=== PATIENT | female | born 1970 | race Caucasian/White ===

== ENCOUNTER 2018-12-20 13:38 | Emergency (ER) | payer OTHER ==
[2018-12-20 13:47] VITALS: TEMP 98.5
[2018-12-20] MEDS ORDERED: MORPHINE SULFATE 4 MG/ML SYRINGE IM STA ×2 (14:09→17:33)
--- NOTE | 2018-12-20 14:11 | ED ---
General Adult HPI - General Chief complaint: Fall Stated complaint: Poss broken rt foot Source: patient, RN notes reviewed Mode of arrival: wheelchair Limitations: no limitations - History of Present Illness Initial comments: Patient is a 48-year-old female with history of torn ligaments in her left lower extremity who presents to the emergency department with a friend with complaint of right lower leg and ankle pain after a slip and fall on the ice an hour ago. She thinks that she broke her ankle. She states she has had morphine in the past without any reactions. Denies possibility of . Denies blood thinner use. Denies head injury, loss of consciousness, or additional injuries. Denies any additional past medical history. Denies medication use at home. Patient denies any recent fever, chills, shortness of breath, chest pain, back pain, neck pain, abdominal pain, nausea or vomiting, headaches or visual changes, or any other complaints. - Related Data Home Medications Medication Instructions Recorded Confirmed No Known Home Medications 12/20/18 12/20/18 Allergies Allergy/AdvReac Type Severity Reaction Status Date / Time Sulfa (Sulfonamide Allergy Unknown Verified 12/20/18 13:47 Antibiotics) Review of Systems ROS Statement: Those systems with pertinent positive or pertinent negative responses have been documented in the HPI. ROS Other: All systems not noted in ROS Statement are negative. Past Medical History Past Medical History: No Reported History History of Any Multi-Drug Resistant Organisms: None Reported Past Surgical History: No Surgical Hx Reported Past Psychological History: No Psychological Hx Reported Smoking Status: Never smoker Past Alcohol Use History: Occasional Past Drug Use History: None Reported General Exam Limitations: no limitations General appearance: alert, in no apparent distress Head exam: Present: atraumatic, normocephalic Eye exam: Present: normal appearance, PERRL, EOMI ENT exam: Present: normal oropharynx, TM's normal bilaterally, normal external ear exam Neck exam: Present: full ROM. Absent: tenderness Respiratory exam: Present: normal lung sounds bilaterally. Absent: wheezes, rales, rhonchi Cardiovascular Exam: Present: regular rate, normal rhythm Extremities exam: Present: normal capillary refill, other (Right ankle edematous and tender.) Neurological exam: Present: alert, oriented X3, CN II-XII intact Skin exam: Present: warm, dry Course Vital Signs 12/20/18 12/20/18 13:44 18:23 Temperature 98.5 F Pulse Rate 66 70 Respiratory 16 20 Rate Blood Pressure 145/81 134/71 O2 Sat by Pulse 100 100 Oximetry Procedures - Orthopedic Splinting/Casting Injury #1 Side: right Lower Extremity Injury Location: short leg, ankle Lower Extremity Immobilizer: posterior splint, stirrup splint Other Orthopedic Equipment: crutches (Prescription given.) Medical Decision Making - Medical Decision Making Patient given morphine for pain. Patient began to feel nauseous; ordered Zofran. Right DP pulse located by the nurse (please see nurse documentation). X-ray of the right tibia and fibula reveals displaced fracture involving the distal fibula. Mild diffuse osteopenia. Displaced fracture involving the medial malleolus with distortion of the ankle mortise. X-ray of the right ankle and foot reveals comminuted, displaced trimalleolar fracture at the right ankle with soft tissue swelling. Splints applied. Patient does not want a prescription for Tylenol; she is angry that she is not being offered a stronger pain medication. I offered that I could probably prescribe her a narcotic if that is what she wanted, but she said that she did not want it anymore and that she wanted to leave. Given a hand -written prescription for crutches. Will refer to orthopedics. Case discussed in detail with attending physician Dr. Aviles. Disposition Clinical Impression: Ankle fracture Disposition: HOME SELF-CARE Condition: Good Instructions (If sedation given, give patient instructions): Ankle Fracture (ED ) Additional Instructions: Follow-up with your primary care provider and orthopedics in 1-2 days. No weight bearing of the right leg (please use crutches). Return to the emergency department if your symptoms worsen or other concerns. Is patient prescribed a controlled substance at d/c from ED?: No Referrals: Nonstaff,Physician [Primary Care Provider] - 1-2 days Bernard Wing MD [STAFF PHYSICIAN] - 1-2 days
--- NOTE | 2018-12-20 15:07 | XR ---
EXAMINATION TYPE: XR tibia fibula RT DATE OF EXAM: 12/20/2018 COMPARISON: NONE HISTORY: Pain TECHNIQUE: Two views are submitted. FINDINGS: There is a displaced fracture involving the distal fibula. Mild diffuse osteopenia. There appears to be displaced fracture involving the medial malleolus with distortion of the ankle mortise. Metallic d ensity adjacent to the femur likely superficial to the patient which should be confirmed clinically. IMPRESSION: 1. There is at least a bimalleolar fracture of the ankle with distortion the ankle mortise. Lateral v iew does not include the distal margin of the posterior tibia correlate with ankle series.
--- NOTE | 2018-12-20 15:23 | XR ---
Right foot and right ankle HISTORY: Trauma and pain 3 views of the right foot and 3 views of the right ankle Bone mineralization is mildly reduced. There is a comminuted, displaced trimalleolar fracture at the right ankle. There is associated soft tissue swelling. IMPRESSION: Fractures as described.
[2018-12-20] MEDS ORDERED: ONDANSETRON ODT 4 MG TAB PO STA (17:46)
--- NOTE | 2018-12-20 17:55 | XR ---
EXAMINATION TYPE: XR ankle complete RT DATE OF EXAM: 12/20/2018 COMPARISON: Today HISTORY: Post reduction 3 views are obtained through the cast but show mildly displaced trimalleolar fracture of the right an kle. There is 5 mm lateral subluxation of the talus. There is widening of the ankle mortise. There is no dislocation. IMPRESSION: Mildly displaced trimalleolar fracture. No change in position compared to exam earlier to day. No dislocation.
[2018-12-20 18:30] VITALS: BP 134/71; PULSE 70; RESP 20
== END 2018-12-20 18:25 | disposition home or self-care (01) ==
LOC: EC 13:38
DX: S82.851A Displaced trimalleolar fracture of right lower leg, initial encounter for closed fracture (principal); S82.831A Other fracture of upper and lower end of right fibula, initial encounter for closed fracture; Z53.20 Procedure and treatment not carried out because of patient's decision for unspecified reasons; Z88.2 Allergy status to sulfonamides; W00.0XXA Fall on same level due to ice and snow, initial encounter; Y92.89 Other specified places as the place of occurrence of the external cause
CPT/HCPCS: 73590; 73610; 73630; 99283; 29515; 96372; J2270